=== PATIENT | male | born 1990 | race Caucasian/White ===

== ENCOUNTER 2020-07-19 11:56 | Emergency (ER) | payer SELFPAY ==
[~2020-07-19] VITALS: Ht 195.6 cm; Wt 176.9 kg
[2020-07-19] MEDS ORDERED: HYDROCODON-ACE1 EA10 PO (12:43)
[2020-07-19] MEDS ORDERED: ZOFRAN4 MG PO (12:43)
[2020-07-19] MEDS ORDERED: AUGMENTIN 875-1 EACH PO ×2 (12:44→15:45)
[2020-07-19] MEDS ORDERED: PROMETHAZINE HC25 MG PR (15:45)
--- OUTSIDE RECORDS SUMMARY | 2020-07-19 16:12 | XMS ---
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 Care Guidelines exist for the following facilities: [facility] ( 07/14/2020 ) [facility] Daniel VISIT COUNT (12 MO.) 1 [facility] 3 [facility] 1 [facility] 2 [facility] 1 [facility] - [facility] 1 [facility] 1 [facility] - [facility] 1 [facility]. TOTAL 22 NOTE: Visits indicate total known visits. ED/UCC VISIT TRACKING (12 MO.) 07/19/2020 11:56 JOSE ALBERTO Stock TYPE: Emergency COMPLAINT: - ABD PAIN 07/18/2020 14:55 [facility] DIAGNOSES: - Diverticulitis of intestine, part unspecified, without perforation or abscess without bleeding - Abdominal Pain - Diverticulitis 07/18/2020 00:37 [facility] TYPE: Emergency DIAGNOSES: - Diverticulitis of intestine, part unspecified, without perforation or abscess without bleeding - abd pain - Abdominal Pain - Follicular cyst of the skin and subcutaneous tissue, unspecified 07/17/2020 20:53 Oriana Wildecezar KattyJaylin [place]ANG[place] TYPE: Emergency DIAGNOSES: - Unspecified abdominal pain - abdominal pain 07/12/2020 17:46 [facility] [place] TYPE: Emergency DIAGNOSES: - Left lower quadrant pain - Abdominal Pain 07/12/2020 03:31 [facility] Colt Nichols [place] TYPE: Emergency DIAGNOSES: 1. Left lower quadrant pain 2. Morbid (severe) obesity due to excess calories 2. Malingerer [conscious simulation] 3. Malingerer [conscious simulation] 3. Morbid (severe) obesity due to excess calories 4. Body mass index [BMI] 45.0-49.9, adult 07/06/2020 16:28 [facility] Rakesh Meade [place] TYPE: Emergency DIAGNOSES: 1. Left lower quadrant pain 1. Diverticulitis of intestine, part unspecified, without perforation or abscess without bleeding 2. Right testicular pain 06/29/2020 [facility] [facility] [place] [facility] DIAGNOSES: - Right lower quadrant pain - Left lower quadrant pain - Abdominal Pain 06/27/2020 03:[address] [facility] [place] [facility] DIAGNOSES: - Diverticulitis of intestine, part unspecified, without perforation or abscess without bleeding - Abdominal Pain - Unspecified abdominal pain 06/26/2020 22:15 Oriana TORRES [place] TYPE: Emergency DIAGNOSES: - Diverticulitis of intestine, part unspecified, without perforation or abscess without bleeding - Nausea with vomiting, unspecified - abdominal pain - Left lower quadrant pain 05/17/2020 04:17 [facility] Rakesh Meade [place] TYPE: Emergency COMPLAINT: - abdominal pain 04/15/2020 18:36 [facility] [place] TYPE: Emergency DIAGNOSES: 0. COUGH TIGHTNESS IN CHEST HURTS 04/08/2020 21:47 [facility] TYPE: Emergency DIAGNOSES: 0. LEFT FLANK PAIN 03/15/2020 01:41 Oriana BLANC TYPE: Emergency DIAGNOSES: - Diverticulitis of large intestine without perforation or abscess without bleeding - Abdominal Pain - Vomiting, unspecified - Essential (primary) hypertension 03/10/2020 21:39 Oriana TORRES [place] TYPE: Emergency DIAGNOSES: - Diverticulitis of intestine, part unspecified, without perforation or abscess without bleeding - Abdominal Pain - ABD Pain 03/01/2020 01:46 [facility] Bandar [place] TYPE: Emergency DIAGNOSES: - Diverticulitis of intestine, part unspecified, without perforation or abscess without bleeding - Abdominal Pain 02/29/2020 21:03 [facility] Max [place] TYPE: Emergency DIAGNOSES: - Unspecified abdominal pain - "bad stomach pain" - Abdominal Pain 02/26/2020 01:00 [facility] Max [place] TYPE: Emergency COMPLAINT: - DIARRHEA DIAGNOSES: - Left lower quadrant pain 02/22/2020 19:50 Oriana TORRES [place] TYPE: Emergency DIAGNOSES: - Fall - Abdominal Pain - Unspecified fall, initial encounter - Contusion of abdominal wall, initial encounter - Contusion of left front wall of thorax, initial encounter - Rib Pain 02/07/2020 19:28 Oriana TORRES [place] TYPE: Emergency DIAGNOSES: - Blood In Stool - Left lower quadrant pain - Dehydration - Nausea with vomiting, unspecified - Abdominal Pain - Diverticulitis of large intestine without perforation or abscess without bleeding Plus 2 More Visits INPATIENT VISIT TRACKING (12 MO.) 03/15/2020 01:41 Oriana TORRES [place] TYPE: Internal Medicine DIAGNOSES: - Essential (primary) hypertension - Diverticulitis of large intestine without perforation or abscess without bleeding - Vomiting, unspecified [email or web address]
== END 2020-07-19 16:10 | disposition home or self-care (01) ==
LOC: ED 11:56
DX: K57.32 Diverticulitis of large intestine without perforation or abscess without bleeding (principal); Z88.8 Allergy status to other drugs, medicaments and biological substances; Z88.6 Allergy status to analgesic agent; Z79.891 Long term (current) use of opiate analgesic
CPT/HCPCS: 80053; 83605; 85025; 96365; 96375; 99284-25; J2270; J2405; J2543; J7030